=== PATIENT | male | born 1985 | race Caucasian/White ===

== ENCOUNTER 2016-08-05 05:36 | Emergency (ER) | payer MEDICAID ==
[~2016-08-05] VITALS: Ht 177.8 cm; Wt 71.1 kg
[2016-08-05] MEDS ORDERED: SODIUM CHLORIDE FLUSH 10ML SYR IVF ONE (07:00)
[2016-08-05] MEDS ORDERED: PROCHLORPERAZINE 5 MG/ML, 2ML IVPush ONE (07:00)
[2016-08-05] MEDS ORDERED: DIPHENHYDRAMINE 50 MG/ML, 1ML IVPush ONE (07:00)
[2016-08-05] MEDS ORDERED: SODIUM CHLORIDE 0.9% 1,000ML IVBOLUS ONE (07:00)
[2016-08-05 07:05] VITALS: BP 118/82
== END 2016-08-05 08:28 | disposition home or self-care (01) ==
LOC: ED 08:14
DX: R51 Headache (principal)
CPT/HCPCS: 96374; 96375; 99284; J0780; J1200; J7030

== ENCOUNTER 2016-08-08 11:28 | Emergency (ER) | payer MEDICAID ==
[~2016-08-08] VITALS: Ht 177.8 cm; Wt 77.0 kg
[2016-08-08 12:22] LABS: ASPARTATE AMINO TRANSFERASE 35 U/L (15-37); BLOOD UREA NITROGEN 17 mg/dL (7-18)
[2016-08-08 15:43] VITALS: BP 121/74
== END 2016-08-08 16:46 | disposition home or self-care (01) ==
LOC: ED 16:40
DX: R53.1 Weakness (principal)
CPT/HCPCS: 36415; 80053; 81003; 82010; 82800; 83036; 83690; 85025; 93005; 99285